=== PATIENT | female | born 1965 | race Caucasian/White ===

== ENCOUNTER → 2017-12-04 | Outpatient (CLI) | payer OTHER ==
--- NOTE | 2017-12-04 16:27 | XR ---
EXAMINATION TYPE: XR lumbar spine 2 or 3V DATE OF EXAM: 12/04/2017 CLINICAL HISTORY: Chronic back pain TECHNIQUE: Full and lateral lateral views of the lumbar spine were obtained COMPARISON: None FINDINGS: There are 5 lumbar type vertebral bodies identified. The lumbar spine shows satisfactory alignment without evidence of acute fracture or dislocation. Vertebral body heights and disk space he ights are within normal limits. There is a mild dextroscoliotic curvature of the lumbar spine. Mild m ultilevel degenerative changes of the lumbar spine are seen as small anterior osteophytes and interve rtebral disc space narrowing most pronounced at L5-S1 and L1-L2. Facet arthropathy is seen at L4-S1. IMPRESSION: 1. No acute fracture or or malalignment is seen in the lumbar spine. 2. Mild multilevel degenerative disc disease most pronounced at L1-L2 and L5-S1 that could be better assessed with MRI. 3. Mild dextroscoliotic curvature of the lumbar spine.
--- NOTE | 2017-12-05 10:39 | BD ---
EXAMINATION TYPE: Axial Bone Density DATE OF EXAM: 12/04/2017 COMPARISON: NONE CLINICAL HISTORY: osteoporosis Height: 5'3 Weight: 157 FRAX RISK QUESTIONS: Secondary Osteoporosis: Current Tobacco Use: y RISK FACTORS HISTORY OF: Postmenopausal woman: y MEDICATIONS: Additional Medications: high blood pressure Additional History: EXAM MEASUREMENTS: Bone mineral densitometry was performed using the [employer] System. Bone mineral density as measured about the Lumbar spine is: ----- L1-L4(G/cm2): 1.023 T Score Values are as follows: ----- L2: -2.4 ----- L3: -1.3 ----- L4: -0.6 ----- L1-L4: -1.3 Bone mineral density about the R hip (g/cm2): 0.819 Bone mineral density about the L hip (g/cm2): 0.813 T Score values are as follows: -----R Neck: -1.6 -----L Neck: -1.6 -----R Total: -0.9 -----L Total: -0.8 IMPRESSION: Osteopenia (T Score between -2.5 and -1). There is slightly increased risk of fracture and the patient may be considered for treatment. Re-Screen 2-5 years. NOTE: T-SCORE=SD OF THE YOUNG ADULT MEAN.
--- NOTE | 2017-12-05 13:27 | MM ---
Reason for exam: screening (asymptomatic). Last mammogram was performed 2 years and 2 months ago. History: Patient is postmenopausal and had first child at age 29. Physical Findings: A clinical breast exam by your physician is recommended on an annual basis and results should be correlated with mammographic findings. MG 3D Screening Mammo W/Cad Bilateral CC and MLO view(s) were taken. Prior study comparison: October 18, 2015, mammogram, performed at [facility]. April 14, 2012, mammogram, performed at [facility]. The breast tissue is heterogeneously dense. This may lower the sensitivity of mammography. Finding: There are stable typically benign punctate calcifications. No significant changes in finding since October 18, 2015 and April 14, 2012. ASSESSMENT: Benign, BI-RAD 2 RECOMMENDATION: Routine screening mammogram of both breasts in 1 year.
--- NOTE | 2017-12-12 11:28 | ECHOF ---
Referral Reason:R00.2 Palpitations MEASUREMENTS -------- HEIGHT: 162.6 cm WEIGHT: 72.6 kg BP: RVIDd: 2.7 cm (< 3.3) IVSd: 1.0 cm (0.6 - 1.1) LVIDd: 3.5 cm (3.9 - 5.3) LVPWd: 1.0 cm (0.6 - 1.1) IVSs: 1.2 cm LVIDs: 1.6 cm LVPWs: 1.3 cm LAESV Index (A-L): 17.49 ml/m Ao Diam: 2.8 cm (2.0 - 3.7) AV Cusp: 1.9 cm (1.5 - 2.6) LA Diam: 2.4 cm (2.7 - 3.8) MV EXCURSION: 11.844 mm (> 18.000) MV EF SLOPE: 32 mm/s (70 - 150) EPSS: 0.4 cm MV E Sinan: 0.83 m/s MV DecT: 340 ms MV A Sinan: 0.84 m/s MV E/A Ratio: 0.99 RAP: 5.00 mmHg RVSP: 10.33 mmHg FINDINGS -------- Sinus rhythm. This was a technically good study. The left ventricular size is normal. Left ventricular wall thickness is normal. Overall left vent ricular systolic function is normal with, an EF between 55 - 60 %. The right ventricle is normal in size and function. Normal LA size by volume 22+/-6 ml/m2. The right atrium is normal in size. Aortic valve is trileaflet and is mildly thickened. There is no evidence of aortic regurgitation. There is no evidence of aortic stenosis. Mild mitral annular calcification present. There is trace to mild mitral regurgitation. Trace tricuspid regurgitation present. Right ventricular systolic pressure is normal at < 35 mmHg. There is no evidence of pulmonary hypertension. Trace/mild (physiologic) pulmonic regurgitation. The aortic root size is normal. Normal inferior vena cava with normal inspiratory collapse consistent with estimated right atrial pre ssure of 5 mmHg. There is no pericardial effusion. CONCLUSIONS -------- 1. Sinus rhythm. 2. This was a technically good study. 3. The left ventricular size is normal. 4. Left ventricular wall thickness is normal. 5. Overall left ventricular systolic function is normal with, an EF between 55 - 60 %. 6. Normal LA size by volume 22+/-6 ml/m2. 7. Aortic valve is trileaflet and is mildly thickened. 8. Mild mitral annular calcification present. 9. There is trace to mild mitral regurgitation. 10. Trace tricuspid regurgitation present. 11. Right ventricular systolic pressure is normal at < 35 mmHg. 12. There is no evidence of pulmonary hypertension. 13. Trace/mild (physiologic) pulmonic regurgitation. 14. The aortic root size is normal. 15. There is no pericardial effusion. SWEATER OPERATOR: Jet Dubose RDCS
== END | disposition home or self-care (01) ==
LOC: RADMAMWWP 12:44
PROVIDERS: ATTEND Family Medicine
DX: Z12.31 Encounter for screening mammogram for malignant neoplasm of breast (principal); Z13.820 Encounter for screening for osteoporosis; M54.5 Low back pain; M54.16 Radiculopathy, lumbar region; R00.2 Palpitations; Z82.49 Family history of ischemic heart disease and other diseases of the circulatory system; M81.0 Age-related osteoporosis without current pathological fracture; M51.36 Other intervertebral disc degeneration, lumbar region
CPT/HCPCS: 72100; 77063; 77067; 77080; 93306

== ENCOUNTER 2017-12-09 08:13 | Day surgery (SDC) | payer OTHER ==
[2017-12-05 08:59] VITALS: BMI 27.3
[~2017-12-09 08:13] MED LIST: LACTATED RINGERS 1,000 ML IV SCH
[2017-12-09 08:57] VITALS: TEMP 98.8
[2017-12-09] MEDS ORDERED: LIDOCAINE 1% 20 ML VIAL (10MG/ML) FOR IV START INTRADERMA ONE (09:05)
[2017-12-09] MEDS ORDERED: fentaNYL (PF) 50 MCG/ML 2 ML AMP ONE (09:42)
[2017-12-09] MEDS ORDERED: PROPOFOL 10 MG/ML 20 ML VIAL IV ONE (09:42)
--- NOTE | 2017-12-09 10:08 | P.PCN ---
Date of Procedure: 12/09/17 Procedure(s) Performed: Procedure: Total colonoscopy with biopsy. Preoperative diagnosis: 1. Diverticulosis with no evidence of acute diverticulitis or strictures. 2. Diminutive polyp in the distal sigmoid biopsied but no large polyps or cancer. Preparation: HalfLytely prep. Sedation: Was provided by anesthesia. Brief clinical history: The patient is a 52-year-old female who is scheduled for this evaluation for screening for neoplasia age being her risk factor. There is no family history of colon cancer. She has no abdominal complaints, bleeding or anemia. This would be her first colonoscopy. Procedure: With the patient on her left lateral decubitus position and after informed consent and adequate sedation, the perianal area was inspected and it did not show any fissures or fistulas. There were no masses felt on digital rectal examination. The Olympus CFQ 160L video colonoscope was then inserted in the rectum in the usual fashion and advanced to the cecum. The mucosa appeared healthy. Diminutive polyp was seen in the distal sigmoid which was biopsied, but there were no large polyps or cancer. Multiple diverticular orifices were seen scattered in the sigmoid and irregular orifice was seen around the hepatic flexure but there was no evidence of acute diverticulitis or strictures. I retroflexed the endoscope in the rectum before the endoscope was withdrawn. The patient tolerated the procedure well. Plan: The patient was reassured. She will follow up with you as planned. Discussed dietary measures. I recommended repeat exam in 5-10 years based on pathology results.
[2017-12-09 10:22] VITALS: BP 101/60; PULSE 62; RESP 18
== END 2017-12-09 10:38 | disposition home or self-care (01) ==
LOC: ORWHC2ENDO 08:13
DX: Z12.11 Encounter for screening for malignant neoplasm of colon (principal); K63.5 Polyp of colon; K57.30 Diverticulosis of large intestine without perforation or abscess without bleeding; I10 Essential (primary) hypertension; Z79.899 Other long term (current) drug therapy; Z88.8 Allergy status to other drugs, medicaments and biological substances; F17.210 Nicotine dependence, cigarettes, uncomplicated
CPT/HCPCS: 88305; 45380; J3010; J2704